=== PATIENT | male | born 1980 | race Caucasian/White ===

== ENCOUNTER 2022-05-03 14:06 | Emergency (ER) | payer OTHER ==
[2022-05-03 14:59] LABS: #Basophils 0.1 thou/uL (0.0-0.2); #Eosinphils 0.2 thou/uL (0.0-0.7); #Lymphocytes 2.9 thou/uL (1.20-3.40); #Monocytes 1.8 thou/uL (0.11-0.59); #Neutrophils 10.2 thou/uL (1.40-6.50); %Basophils 0.6 % (0.0-1.0); %Eosinophils 1.5 % (0.0-10.0); %Lymphocytes 18.8 % (21.0-51.0); %Monocytes 11.8 % (0.0-10.0); %Neutrophils 67.2 % (42.0-75.0); Hemoglobin 13.6 g/dL (14.0-18.0); Mean Corpuscular HGB CONC 31.5 g/dL (32.0-36.0); Mean Corpuscular Hemoglobin 29.5 pg (27.0-31.0); Mean Corpuscular Volume 93.7 fL (78.0-98.0); Mean Platelet Volume 9.9 fL (7.4-10.4); Platelet Count 210 thou/uL (130-400); RBC Distribution Width 11.9 % (11.5-14.5); Red Blood Cell (RBC) Count 4.59 mill/uL (4.70-6.10); White Blood Cell (WBC) Count 15.1 thou/uL (4.8-10.8)
[2022-05-03] MEDS ORDERED: Dextrose 5 %-0.45 % NaCl 1,000 ML ONE (15:09)
[2022-05-03] MEDS ORDERED: Cefepime 2 GM VIAL ONE (15:09)
[2022-05-03] MEDS ORDERED: Sodium Chloride 0.9% 100 ML ONE (15:09)
[2022-05-03] MEDS ORDERED: Morphine 2 MG/ML VIAL ONE (15:09)
[2022-05-03 15:11] LABS: ALT (SGPT) 34 U/L (8-55); AST (SGOT) 17 U/L (5-34); Albumin 4.6 g/dL (3.5-5.0); Alkaline Phosphatase 90 U/L (40-110); Anion Gap 14 mmol/L (10-20); BUN (Urea Nitrogen) 13 mg/dL (8.9-20.6); Bilirubin, Total 0.8 mg/dL (0.2-1.2); Calc. Creatinine Clearance 0 mL/min (70-130); Calcium 9.6 mg/dL (7.8-10.44); Carbon Dioxide 28 mmol/L (22-29); Chloride 101 mmol/L (98-107); Estimated GFR 116; Globulin 3.3 g/dL (2.4-3.5); Glucose 124 mg/dL (70-105); Potassium 4.1 mmol/L (3.5-5.1); Protein, Total 7.9 g/dL (6.0-8.3); Sodium 139 mmol/L (136-145)
[2022-05-03] MEDS ORDERED: Sodium Chloride 0.9% 500 ML ONE (15:38)
[2022-05-03 15:47] LABS: SARS-CoV-2 NAA Rapid Test Not Detected (NotDetected)
== END 2022-05-03 16:00 | disposition short-term general hospital (02) ==
LOC: NAV ERS 14:06
DX: L08.9 Local infection of the skin and subcutaneous tissue, unspecified (principal); S61.431D Puncture wound without foreign body of right hand, subsequent encounter; W45.0XXD Nail entering through skin, subsequent encounter; F17.210 Nicotine dependence, cigarettes, uncomplicated
CPT/HCPCS: 80053; 83605; 85025; 87040; 96365; 96375; J0692; J2270; J3370; J3490; J7030; J7042; U0002